=== PATIENT | female | born 1995 | race Caucasian/White ===

== ENCOUNTER 2017-12-17 21:11 | Emergency (ER) | payer MEDICAID, SELFPAY ==
[2017-12-17 21:12] VITALS: BP 160/107; PULSE 108; RESP 20; TEMP 37.1; O2SAT 99; BMI 48.8
[2017-12-17 21:57] LABS: Bacteria 0 SEEN /hpf (None Seen); Mucous, Urine 0 SEEN /hpf (<or=2+); Red Blood Cells-Urine 0 SEEN /hpf (0-5)
[2017-12-17 21:59] LABS: Color, Urine Straw (Yellow); Glucose, Dipstick Normal (Normal); Ketone-Dipstick Negative (Negative); Leukocyte Esterase-Dipstick Negative /ul (Negative); Nitrite-Dipstick Negative (Negative); Occult Blood-Urine 25 /ul (Negative); Protein-Dipstick Negative (Negative); Urine Bilirubin Dipstick Negative (Negative); Urine Clarity Clear (Clear); Urine Urobilinogen Normal (Normal)
[2017-12-17 22:05] LABS: Internal QC Validated? YES +Cl - CLEAR BKGD; Pregnancy, Urine Negative Negative
[2017-12-17 22:10] LABS: Squamous Epithelial Cells - UA 0-5 SEEN /hpf (5-10)
[2017-12-17 22:13] LABS: White Blood Cells 0 SEEN /hpf (0-5)
[2017-12-17 22:43] LABS: Absolute Lymphocyte Count 3.43 X10^3/ul (0.83-4.51); Absolute Neutrophil Count 8.3 X10^3/uL (2.0-7.7); Basophil# 0.03 X10^3/uL; Basophil% 0.2 % (0-1); Eosinophil# 0.28 X10^3/uL; Eosinophils% 2.1 % (0-5); Hematocrit 40.5 % (37-47); Hemoglobin 12.9 g/dl (12.0-15.0); Lymphocyte # 3.43 X10^3/ul (4.0); Lymphocyte % 26.1 % (19-41); Mean Corp Hgb Conc 31.9 g/gl (32-36); Mean Corpuscular Hgb 27.5 pg (27.0-32.0); Mean Corpuscular Volume 86.4 fL (81-99); Mean Platelet Vol. 9.5 fl (6.2-12.0); Monocyte# 1.05 X10^3/uL; Neutrophil % 63.4 % (47-70); POSITIVE COUNT NO; POSITIVE DIFFERENTIAL NO; POSITIVE MORPHOLOGY NO; Platelet Count 351 K/mm3 (150-450); RBC Distribution Width CV 14.3 % (11.6-14.6); RBC Distribution Width SD 44.2 fl (35.1-43.9); Red Blood Count 4.69 M/mm3 (4.2-5.4); White Blood Count 13.1 K/mm3 (4.4-11.0)
[2017-12-17 23:16] LABS: Anion Gap 8 (5-15); BUN 11 mg/dL (7-18); BUN/Creat Ratio 14.9 RATIO (10-20); Calcium,Total 8.8 mg/dL (8.5-10.1); Chloride 106 mmol/L (98-107); Creatinine, Serum 0.74 mg/dL (0.55-1.02); EST Glomerular Filtration Rate 102 mL/min (>60); Est Glom Filt Rate - Afr Amer 124 mL/min (>60); Estimated Creatinine Clearance 96.97 ml/min; Glucose 95 mg/dL (74-106); Sodium Level 142 mmol/L (136-145)
[2017-12-17] MEDS: 0.9% Normal Saline 1,000 ML 1000 ML IV (23:26)
--- NOTE | 2017-12-17 23:33 | ED.VISSUMM ---
- ER Visit Summary Date of Service: 12/17/17 Chief Complaint: Feel weird History of Present Illness: The patient is a 22 F who states she woke up this morning feeling weird. She felt fine when she went to bed last night. She describes decreased energy and mild nausea. She states her limbs feel heavy to move them. Symptoms seem to worsen throughout the day. She did eat today did not notice any change in her symptoms with food. She has noted urinary urgency recently but no dysuria. She is unsure of her last menstrual cycle stating she does not have periods secondary to PCOS. Physical Examination: Vital signs reveal blood pressure 160/107, temperature 98.8, heart rate 108, respiratory rate 20, pulse ox 99% on room air. Patient sitting upright in bed no acute distress. She is nontoxic appearing. Head and neck examination reveals mildly dry mucous membranes. Heart is regular rate and rhythm. Lung sounds are clear. Abdomen is soft and nontender. Active bowel sounds are noted throughout. Extremity examination reveals strong distal pulses throughout. She has no significant leg edema. She has normal strength and sensation on testing. Test Results: CBC was a white count of 13.1 with a normal differential. On review of prior records patient has always had a mild leukocytosis on prior blood draws. Chemistry studies are unremarkable. Urinalysis is unremarkable. test is negative. Emergency Department Course and Treatment: She is given a liter of IV fluids. On repeat evaluation she is resting comfortably. Blood pressure is 104/55, heart rate 93, pulse ox 98% on room air. Patient will continue to monitor symptoms over the next several days. Treatment Plan: [] Disposition: Discharge Impression: Generalized weakness, uncertain etiology This note was generated with [employer] dictation software. It may contain incorrect words, spelling, and punctuation that were not noted in review of the chart prior to signing ED Disposition - Plan for ED Patient: Disposition: Home or Assisted Living Chief Complaint: Weakness Instructions: ED Weakness [facility] Referrals: Sarah Victoria NP-C [Primary Care Provider] -
--- NOTE | 2017-12-18 00:39 | ED.DEP ---
ED Disposition - Plan for ED Patient: Disposition: Home or Assisted Living Chief Complaint: Weakness Instructions: ED Weakness [facility] Referrals: Sarah Victoria NP-C [Primary Care Provider] -
[2017-12-18 00:43] VITALS: BP 109/55; PULSE 93; RESP 16; O2SAT 98
[2017-12-18 00:44] VITALS: BP 119/58; PULSE 89; RESP 16; O2SAT 97
== END 2017-12-18 00:56 | disposition home or self-care (01) ==
PROVIDERS: Emergency Provider Emergency Medicine; Family Provider Nurse Practitioner; PCP Nurse Practitioner
DX: R53.1 Weakness (principal); R11.0 Nausea; R39.15 Urgency of urination; R53.83 Other fatigue; E28.2 Polycystic ovarian syndrome; Z90.5 Acquired absence of kidney
CPT/HCPCS: 80048; 81001; 81025; 85025; 96360; 99283; J7030; A4216

== ENCOUNTER 2018-02-10 17:02 | Emergency (ER) | payer MEDICAID, SELFPAY ==
[2018-02-10 17:03] VITALS: BP 162/106; PULSE 95; RESP 16; TEMP 36.6; O2SAT 98; BMI 35.4
--- NOTE | 2018-02-10 17:32 | ED.VISSUMM ---
- ER Visit Summary Date of Service: 02/10/18 Chief Complaint: [] Dental pain History of Present Illness: The patient is a 22 F [] complaining of right upper wisdom tooth pain after it reportedly broke 2 days ago. She reports having a mild pain which was tolerable however then she felt a chunk came off and she has significant discomfort. She reports she has a appointment with a dentist tomorrow. Physical Examination: [] HEENT reveals right upper wisdom tooth posterior dental fracture. No significant gingival swelling or signs of infection. Moist mucous membranes. Remainder of exam is unremarkable. Test Results: [] None. Emergency Department Course and Treatment: [] Patient given oxycodone orally for analgesia. She reports she has a ride home. She was given a few Ultram tablets to last until tomorrow for her visit with a dentist. She is amenable with this plan and close follow-up. Treatment Plan: [] Oral analgesic medication with close dental follow-up. Disposition: [] Discharge, stable. Impression: [] Dental fracture Odontalgia This note was generated with [employer] dictation software. It may contain incorrect words, spelling, and punctuation that were not noted in review of the chart prior to signing ED Disposition - Plan for ED Patient: Chief Complaint: Dental Referrals: Sarah Victoria NP-C [Primary Care Provider] -
--- NOTE | 2018-02-10 17:35 | ED.DEP ---
ED Disposition - Plan for ED Patient: Disposition: Home or Assisted Living Chief Complaint: Dental Instructions: ED Fx Tooth Prescriptions: traMADol [Ultram (G)] 50 mg PO Q6H PRN PRN #8 tab PRN Reason: Pain Referrals: Sarah Victoria NP-C [NON-STAFF] -
[2018-02-10] MEDS: oxyCODONE 5 MG Tablet 10 MG PO (17:52)
== END 2018-02-10 17:57 | disposition home or self-care (01) ==
PROVIDERS: Emergency Provider Emergency Medicine
DX: S02.5XXA Fracture of tooth (traumatic), initial encounter for closed fracture (principal); K08.89 Other specified disorders of teeth and supporting structures; X58.XXXA Exposure to other specified factors, initial encounter; Y93.9 Activity, unspecified; Y92.9 Unspecified place or not applicable
CPT/HCPCS: 99283

== ENCOUNTER 2018-12-17 05:00 | Inpatient (IN) | payer MEDICAID, SELFPAY ==
--- NOTE | 2018-12-13 13:42 | PCM.HP.BLA ---
History and Physical Date of Admission: 12/17/18 Pre-Op History and Physical ? HPI: The patient is a 23 year old female presenting for pre-operative visit. She is scheduled for?, for history of previous and suspected LGA fetus on December 17, 2018. ??Procedure discussed along with risks, benefits and complications. ?Other alternatives discussed for management. Consent form signed??Yes.? PAST?MEDICAL?HISTORY PAST MEDICAL HISTORY Diagnosis Date ? Anemia ? ? BENIGN NEOPLASM SKIN NOS 11/08/2006 ? Chlamydia infection complicating 01/15/2014 ? Congenital absence of right kidney ? ? Congenital absence of right kidney ? ? FRACTURE 2006 ? ANKLE ? Irregular menses ? ? PMH - PAST MEDICAL HISTORY OF 2005 ? left ankle fracture ? Pyelonephritis 04/2017 ? seasonal allergies ? ? ? PAST?SURGICAL?HISTORY PAST SURGICAL HISTORY Procedure Laterality Date ? OTHER ? apr 2011 ? mole removal x 2 ? PAST SURGICAL HISTORY OF ? ? ? wisdom teeth removal ? REMOVE TONSILS/ADENOIDS,<12 Y/O ? CURRENT?MEDICATIONS ? Current Outpatient Medications: ferrous sulfate 325 mg (65 mg iron) tablet Take 1 tablet by mouth every other day. Take one tab on Mondays, Wednesdays and Fridays. Disp: Rfl: nitrofurantoin monohydrate and macrocrystal (MACROBID) 100 mg capsule Take 1 capsule by mouth once daily. For the remainder of the Disp: 30 capsule Rfl: 3 Nrsbkjhr-Wj-Dus-Fe-FA ( VITAMIN) tab Take 1 tablet by mouth. Disp: Rfl: ? No current facility-administered medications for this visit.? ? ALLERGIES:?Patient has no known allergies. ? PERSONAL HISTORY:? 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 control/protection: Condom ??Other Topics ?Concerns: ? Service: Not Asked ?Blood Transfusions: Not Asked ?Caffeine Concern: Yes ?soda ?Occupational Exposure: Not Asked ?Hobby Hazards: Not Asked ?Sleep Concern: Not Asked ?Stress Concern: Not Asked ?Weight Concern: Not Asked ?Special Diet: Not Asked ?Back Care: Not Asked ?Exercise: Not Asked ?Bike Helmet: Not Asked ?Seat Belt: Not Asked ?Self-Exams: Not Asked ??Social History Narrative ?Not on file ? FAMILY HISTORY:? FAMILY?HISTORY FAMILY HISTORY Problem Relation Age of Onset ? Heart Mother ? ? Cancer Father ?Bone cancer ? No Known Problems Brother ? ? Colon Cancer Maternal Grandmother ? ? Hypertension Maternal Grandmother ? ? Hypertension Maternal Grandfather ? ? Diabetes Paternal Grandmother ? ? No Known Problems Paternal Grandfather ? ? No Known Problems Son ? ? REVIEW OF SYMPTOMS: GENERAL: denies fevers or chills ENDOCRINOLOGY: has not been on steroids Cardiology : denies palpitations or chest pain Respiratory: denies SOB or cough Hematology: denies history of prolonged bleeding or easy bruising or VTE Allergy: Denies history of personal or family history of allergy to anesthesia ? ? PHYSICAL EXAMINATION: ? VITALS:?Last menstrual period 01/06/2018. ? GENERAL:??The patient is well nourished, well hydrated in no acute distress. ?, The patient is oriented to time, place, and person. NECK:?Supple. No lynphadenopathy, normal thyroid, no thyromegaly. LUNGS:?Clear to auscultation bilaterally. no wheezes, rhonchi or rales HEART:?Regular rate and rhythm, Normal heart sounds and No murmurs or gallops Extremities: 1+ edema, no clubbing or cyanosis Abdomen: Gravid, nontender, large for gestational age, no skin lesions. IMPRESSION: 39 week on scheduled date, history of previous , LGA fetus by ultrasound, polyhydramnios, 2 vessel umbilical cord ? PLAN:???The risks/benefits/alternatives and personal involved for the planned repeat were reviewed with the patient. Her questions were answered to her satisfaction and she desires to proceed. ?Consent was signed. ?I reviewed with her postop instructions and expectations. ? ? I have reviewed and updated past medical and surgical history, medications and allergies? Rissa Amaya M.D.
[2018-12-17] VITALS (20 sets, daily range): BP systolic 106–131; BP diastolic 45–72; PULSE 97–126; RESP 16–20; TEMP 36.2–37.6; O2SAT 95–99; BMI 46.5
[2018-12-17] MEDS: Lactated Ringers 1,000 ML 999 ML IV (05:15)
[2018-12-17 05:34] LABS: Absolute Lymphocyte Count 3.51 X10^3/ul (0.83-4.51); Absolute Neutrophil Count 11.3 X10^3/uL (2.0-7.7); Basophil# 0.04 X10^3/uL; Basophil% 0.2 % (0-1); Eosinophil# 0.34 X10^3/uL; Eosinophils% 2.1 % (0-5); Hematocrit 33.6 % (37-47); Hemoglobin 10.9 g/dl (12.0-15.0); Lymphocyte # 3.51 X10^3/ul (4.0); Lymphocyte % 21.4 % (19-41); Mean Corp Hgb Conc 32.4 g/gl (32-36); Mean Corpuscular Hgb 27.3 pg (27.0-32.0); Mean Platelet Vol. 9.3 fl (6.2-12.0); Monocyte# 1.21 X10^3/uL; Monocyte% 7.4 % (0-10); Neutrophil # 11.27 X10^3/uL (2.7-7.7); Neutrophil % 68.5 % (47-70); Platelet Count 249 K/mm3 (150-450); RBC Distribution Width CV 15.8 % (11.6-14.6); RBC Distribution Width SD 48.3 fl (35.1-43.9); White Blood Count 16.4 K/mm3 (4.4-11.0)
[2018-12-17 05:35] LABS: Differential Indicated SCAN CRITERIA MET; POSITIVE COUNT NO; POSITIVE DIFFERENTIAL NO; POSITIVE MORPHOLOGY YES
[2018-12-17] MEDS: Lactated Ringers 1,000 ML 150 ML IV (06:08)
[2018-12-17] MEDS: Sodium Citrate/Citric Acid 30 ML UDC PO (07:07)
--- NOTE | 2018-12-17 07:11 | NURSING ---
handoff report given to Elisha BLOOD and Jono
[2018-12-17] MEDS: Oxytocin 30 units/NS 500 ml 30 UNITS/500 ML IV.SOLN 167 UNITS IV (07:49)
--- NOTE | 2018-12-17 08:15 | PCM.OPRPT ---
Report of Operation Date of Procedure: 12/17/18 Pre-Operative Diagnosis: 39 WEEKS, PREVIOUS C/S, POLYHYDRAMNIOIS Post-Operative Diagnosis: SAME Surgery/Procedure Performed:: REPEAT LTCS Description of Surgical Findings:: Normal uterus tubes and ovaries. Large amount of clear amniotic fluid. Normal vigorous female radiology orderly: Katlin Vallecillo Type of Anesthesia:: Spinal Special Medications: none Specimen's removed: n/a Drains: moncada Estimated Blood Loss (mL): 900cc Fluids Replaced: 1900 cc Description of Procedure: The patient was taken to the operating room. She was prepped and draped in the dorsal supine position with a leftward tilt. A Pfannenstiel skin incision was made approximately 2 cm above the symphysis pubis and carried through to underlying layer fascia with the scalpel. The fascia was incised incised in the midline and extended laterally with the Bush scissors. The fascia was dissected off the rectus muscles with blunt and sharp dissection. The rectus muscles were in the midline and the peritoneum was entered bluntly. The peritoneal incision was stretched and the bladder blade was placed. The uterine incision was made in a low transverse fashion with the scalpel and extended superiorly and inferiorly with blunt dissection. The amniotic membranes were ruptured bluntly and clear amniotic fluid returned. The infant's head was brought to the incision in the flexed position, it would not engage very easily. The head was held down against the incision and the Kiwi vacuum was placed on the flexion point and suction create a 550 mmHg. With one gentle pull and fundal pressure in the standard fashion the head delivered easily with no pop offs. The vacuum was removed. The remainder of the was delivered in less than 15 seconds with minimal traction and delivered without difficulty. The mouth and nares were bulb suctioned. The cord was clamped and cut as the infant was stimulated. Cord clamping was delayed. The was handed off to the waiting nursing staff. The placenta was delivered with fundal massage and gentle traction in the standard fashion. The uterus was exteriorized and cleared of all clots and debris. The cervix was dilated with a ring forcep. The uterine incision was closed with #1 Vicryl in a running locked fashion. A second layer of the same suture was used in an imbricating fashion. The incision was examined and was found to be hemostatic. The uterus was placed back into the peritoneal cavity and hemostasis was again confirmed. The rectus muscles were examined and any bleeding was Bovie cauterized. The parietal peritoneum and rectus muscles were closed en bloc with an 0 Vicryl running suture. The surgical teams outer gloves were then changed. The rectus fascia was examined and any bleeding was Bovie cauterized and the rectus fascia was closed with looped #1 PDS suture in a running standard fashion. The subcutaneous tissue was examining and any bleeding was Bovie cauterized. The subcutaneous tissue was reapproximated with 3-0 Vicryl suture. The skin was closed in a subcuticular fashion by the LOG YARD DERRICK OPERATOR with me present in the labor and delivery suite. I performed the remainder of the procedure with assistance. Abisai was placed over the uterine incision. It was also placed in the subcutaneous tissue. All sponge, lap, and needle counts were correct. The patient was taken to her room for recovery in a stable condition. Grafts/Implants Used: none - Complications none - Admit VTE Documentation VTE Present on Admission: No VTE Mechan Device Prophylaxis: SCD's VTE Pharm Prophylaxis ordered?: Yes Delivery Classification: Scheduled Final ADARSH: 12/24/18 Final ADARSH Source: US <20 weeks Gestational age: 39 Weeks and 0 Days Indications for : Repeat Elective Amniotic Membrane Rupture Type: Artificial Amniotic Fluid Description: Clear Placenta [facility]position[facility] Drain: Moncada to straight drain Cord Entanglement: None Cord Vessel Description: 3 Vessels Infant Gender: Female (1 minute): 8 (5 minute): 9 Delayed cord clamping: Yes Pre-op Antibiotic Given: - - ancerf 3 gm
--- NOTE | 2018-12-17 08:22 | OP.PCM_ITS ---
Report of Operation Date of Procedure: 12/17/18 Pre-Operative Diagnosis: 39 WEEKS, PREVIOUS C/S, POLYHYDRAMNIOIS Post-Operative Diagnosis: SAME Surgery/Procedure Performed:: REPEAT LTCS Description of Surgical Findings:: Normal uterus tubes and ovaries. Large amount of clear amniotic fluid. Normal vigorous female yard brakeman: Katlin Vallecillo Type of Anesthesia:: Spinal Special Medications: none Specimen's removed: n/a Drains: moncada Estimated Blood Loss (mL): 900cc Fluids Replaced: 1900 cc Description of Procedure: The patient was taken to the operating room. She was prepped and draped in the dorsal supine position with a leftward tilt. A Pfannenstiel skin incision was made approximately 2 cm above the symphysis pubis and carried through to underlying layer fascia with the scalpel. The fascia was incised incised in the midline and extended laterally with the Bush scissors. The fascia was dissected off the rectus muscles with blunt and sharp dissection. The rectus muscles were in the midline and the peritoneum was entered bluntly. The peritoneal incision was stretched and the bladder blade was placed. The uterine incision was made in a low transverse fashion with the scalpel and extended superiorly and inferiorly with blunt dissection. The amniotic membranes were ruptured bluntly and clear amniotic fluid returned. The infant's head was brought to the incision in the flexed position, it would not engage very easily. The head was held down against the incision and the Kiwi vacuum was placed on the flexion point and suction create a 550 mmHg. With one gentle pull and fundal pressure in the standard fashion the head delivered easily with no pop offs. The vacuum was removed. The remainder of the was delivered in less than 15 seconds with minimal traction and delivered witho ut difficulty. The mouth and nares were bulb suctioned. The cord was clamped and cut as the was stimulated. Cord clamping was delayed. The was handed off to the waiting nursing staff. The placenta was delivered with fundal massage and gentle traction in the standard fashion. The uterus was exteriorized and cleared of all clots and debris. The cervix was dilated with a ring forcep. The uterine incision was closed with #1 Vicryl in a running locked fashion. A second layer of the same suture was used in an imbricating fashion. The incision was examined and was found to be hemostatic. The uterus was placed back into the peritoneal cavity and hemostasis was again confirmed. The rectus muscles were examined and any bleeding was Bovie cauterized. The parietal peritoneum and rectus muscles were closed en bloc with an 0 Vicryl running suture. The surgical teams outer gloves were then changed. The rectus fascia was examined and any bleeding was Bovie cauterized and the rectus fascia was closed with looped #1 PDS suture in a running standard fashion. The subcutaneous tissue was examining and any bleeding was Bovie cauterized. The subcutaneous tissue was reapproximated with 3-0 Vicryl suture. The skin was closed in a subcuticular fashion by the LIGHT ADJUSTER with me present in the labor and delivery suite. I performed the remainder of the procedure with assistance. Abisai was placed over the uterine incision. It was also placed in the subcutaneous tissue. All sponge, lap, and needle counts were correct. The patient was taken to her room for recovery in a stable condition. Grafts/Implants Used: none - Complications none - Admit VTE Documentation VTE Present on Admission: No VTE Mechan Device Prophylaxis: SCD's VTE Pharm Prophylaxis ordered?: Yes Delivery Classification: Scheduled Final ADARSH: 12/24/18 Final ADARSH Source: US <20 weeks Gestational age: 39 Weeks and 0 Days Indications for : Repeat Elective Amniotic Membrane Rupture Type: Artificial Amniotic Fluid Description: Clear Placenta [facility]position: [facility] Drain: Moncada to straight drain Cord Entanglement: None Cord Vessel Description: 3 Vessels Infant Gender: Female (1 minute): 8 (5 minute): 9 Delayed cord clamping: Yes Pre-op Antibiotic Given: - - ancerf 3 gm
[2018-12-17] MEDS: Lactated Ringers 1,000 ML 100 ML IV ×2 (09:39→18:42)
[2018-12-17] MEDS: Ketorolac 30 MG/ML Syringe IV ×2 (13:57→20:16)
[2018-12-17] MEDS: Senna/Docusate Sodium 1 Tablet PO ×2 (14:07→22:31)
[2018-12-17] MEDS: 0.9% Saline Lock 10 ML Syringe IV (20:15)
[2018-12-17] MEDS: DiphenhydrAMINE 25 MG Capsule PO (21:19)
[2018-12-18] VITALS (8 sets, daily range): BP systolic 107–127; BP diastolic 49–75; PULSE 95–112; RESP 16–18; TEMP 36.4–36.9; O2SAT 94–97
[2018-12-18] MEDS: Acetaminophen 500 MG Tablet 1000 MG PO ×2 (00:32→12:15)
[2018-12-18] MEDS: Ketorolac 30 MG/ML Syringe IV ×4 (01:14→19:50)
[2018-12-18] MEDS: Enoxaparin 80 MG/0.8 ML Syringe 70 MG SC (06:04)
[2018-12-18 06:43] LABS: Hematocrit 31.5 % (37-47); Hemoglobin 10.1 g/dl (12.0-15.0); Mean Corp Hgb Conc 32.1 g/gl (32-36); Mean Corpuscular Hgb 27.1 pg (27.0-32.0); Mean Corpuscular Volume 84.5 fL (81-99); Mean Platelet Vol. 9.5 fl (6.2-12.0); Platelet Count 217 K/mm3 (150-450); RBC Distribution Width SD 49.1 fl (35.1-43.9); Red Blood Count 3.73 M/mm3 (4.2-5.4)
[2018-12-18 06:45] LABS: Scan Indicated on CBC? Y/N NO
[2018-12-18] MEDS: 0.9% Saline Lock 10 ML Syringe IV ×2 (08:27→19:50)
--- NOTE | 2018-12-18 12:41 | PCM.PN.OB ---
Subjective: Doing well per patient and nursing staff. Ambulating without difficulty. Roman out. Voiding and had bowel movement. Toradol for pain and effective. Bottle feeding. Taking PO without difficulty. Denies CENTENO, visual changes, chest pain, shortness of breath, increased bleeding or leg pain. Planning D/C home tomorrow. - Physical Exam General: Alert, Oriented x3, Cooperative HEENT: Atraumatic, Normocephalic Neck: Trachea Midline Lungs: Clear to auscultation, Normal air movement, No rhonchi, No wheeze Cardiovascular: Regular rate, Regular Rhythm, No murmurs Abdomen: Bowel Sounds Present, Soft, - - Appropriately tender. Fundus firm 3 below U. Dressing dry and intact, no drainage. Extremities: No edema Neurological: Deep Tendon Reflexes 2+/4 and Symmetrical Psych/Mental Status: Normal Affect, Appropriate Vital Signs Temp Pulse Resp BP Pulse Ox 98.5 F 110 H 18 120/67 94 12/18/18 08:15 12/18/18 08:15 12/18/18 08:15 12/18/18 08:15 12/18/18 05:12 Oxygen Delivery Method Room Air Weight: 263 lb Body Mass Index (BMI) 46.5 Intake and Output for Last 24 Hours 12/16/18 12/17/18 12/18/18 23:59 23:59 23:59 Intake Total 4903 / 4903 988 / 988 Output Total 1150 / 1150 2800 / 2800 Balance 3753 / 3753 -1812 / -1812 Laboratory Tests Past 24 Hrs 12/18/18 06:10 WBC 17.0 H RBC 3.73 L Hgb 10.1 L Hct 31.5 L MCV 84.5 MCH 27.1 MCHC 32.1 RDW 16.0 H RDW Differential 49.1 H Plt Count 217 MPV 9.5 Medical Necessity - Tobacco Use Smoking Status: Never smoker Assessment/Plan A:POD #1 Repeat LTCS P: 1) Routine post op care 2) Labs and vitals normal 3) D/C home tomorrow.
--- NOTE | 2018-12-18 16:46 | CASEMGMT ---
Social Work Labor and Delivery Unit Social work consult received and noted. Chart has been reviewed. Plan: See patient/mother of baby for assessment on 12-19-2018. -DELTA Briceno, FILM TESTS CHECKER
[2018-12-19] MEDS: Ketorolac 30 MG/ML Syringe IV ×2 (01:35→08:06)
[2018-12-19] MEDS: 0.9% Saline Lock 10 ML Syringe IV ×2 (01:36→08:07)
[2018-12-19 01:45] VITALS: BP 110/77; PULSE 98; RESP 18; TEMP 36.3
[2018-12-19] MEDS: Enoxaparin 80 MG/0.8 ML Syringe 70 MG SC (05:36)
[2018-12-19 08:10] VITALS: BP 125/80; PULSE 107; RESP 20; TEMP 37.1; O2SAT 98
--- NOTE | 2018-12-19 08:36 | DCINST_ITS ---
Discharge Diet: No Restrictions Discharge Activity: May Not Drive - for 2 weeks or while taking narcotic pain meds., May Shower, May Take a Tub Bath - in 7 days. May resume sexual activity in: 4-6 weeks Lifting Restrictions: 20 pounds Additional Activity Instructions:: Nothing in the vagina for 4-6 weeks. You may return to work/school in 6 weeks. Call your doctor if your incision/area has: Continuous Slow Oozing, Sudden Increased Bleeding, Increased Pain/ Swelling, Increased Redness, Foul Smelling Discharge Call your doctor if you observe: Fever of 101 or Higher Suture Line Care: Avoid Pulling/Pushing, Avoid Pinching/Bending Additional Instructions: If you experience any of the following, contact your healthcare provider. * Bleeding that soaks a pad every hour for 2 hours * Fever 100.4 or higher * Unrelieved incision or abdominal pain * Swelling, redness, discharge or bleeding from your incision or episiotomy site * Your incision begins to separate * Problems urinating (including inability to urinate or burning while urinating). * Visual changes * Severe headache * Flu-like symptoms * Pain or redness in one of both of your breasts * Pain, warmth, tenderness or swelling in your legs, especially the calf area * Frequent nausea and vomiting * Symptoms of depression or anxiety If you experience any of the following, call 911 or go to the nearest Emergency Room. * Chest pain * Problems breathing * Seizure activity * Partial or complete paralysis of a body part, slurred speech, weakness or drooping of the face, or a sudden inability to walk or hold your balance Allergies/Adverse Reactions: Allergies No Known Allergies Allergy (Verified 12/17/18 05:03) Medications to take at Discharge Ferrous Sulfate [Iron] 325 mg PO DAILY 12/17/18 Nitrofurantoin Monohyd/M-Cryst [Macrobid 100 mg Capsule] 100 mg PO DAILY 12/17/18 Tablet 1 tab PO DAILY 12/17/18 Follow-Up: Call to make an appointment with your doctor for an incision check in 1-2 weeks. You will also need a 6 week post- follow up appointment. Test results from this visit will be discussed in further detail at your follow- up appointment, if applicable. Please Follow Up With: Rissa Amaya MD - Incision Check visit already scheduled When: 12/27/18 Primary Care Physician: Care Physician,No Primary [Primary Care Provider] - Proposed Discharge Date: 12/19/18
--- NOTE | 2018-12-19 08:39 | PCM.PN.OB ---
Subjective: Patient sitting up in bed denying any issues or complaints at this time. Patient reports no issues with urination or ambulation. Patient is bottlefeeding infant - tolerating formula well. Patient reports incisional pain is well controlled with NSAID pain medication. Patient desires discharge to home today. Objective: Nipples without cracks, blisters. Breasts soft. Abdomen NT x 4 quadrants, + flatus, FF midline 2FB below umbilicus Incisional dressing dry and intact, no exudate noted. 2x5cm erythematous plque rash on abdomen above dressing on right side. Most c/w contact dermatitis or heat rash. Blanches when pressed. +2/4 reflexes in LE, no edema in LE, negative calf tenderness to palpation scant rubra lochia - Physical Exam General: Alert, Oriented x3, Cooperative HEENT: Atraumatic, Normocephalic Lungs: Normal air movement Cardiovascular: Regular rate, Regular Rhythm Abdomen: Soft, Non Tender Extremities: No edema, Capillary Refill Less than 3 Seconds Skin: No breakdown, Rash Present - above incisional dressing on right side of abdomen - raised red plaque rash Musculoskeletal: No Tenderness to Palpation of Joints or Extremities Neurological: Cranial nerves II-XII grossly intact Psych/Mental Status: Normal Affect, Appropriate Vital Signs Temp Pulse Resp BP Pulse Ox 98.8 F 107 H 20 H 125/80 H 98 12/19/18 08:10 12/19/18 08:10 12/19/18 08:10 12/19/18 08:10 12/19/18 08:10 Oxygen Delivery Method Room Air Weight: 263 lb Body Mass Index (BMI) 46.5 Intake and Output for Last 24 Hours 12/17/18 12/18/18 12/19/18 23:59 23:59 23:59 Intake Total 4903 / 4903 988 / 988 Output Total 1150 / 1150 3600 / 3600 Balance 3753 / 3753 -2612 / -2612 Medical Necessity - Tobacco Use Smoking Status: Never smoker Assessment/Plan 23 y/o s/p repeat LTCS, POD #2, Normal PP Course, Contact Dermatitis Rash P: 1) Discharge to home pending discharge 2) Rx Hydrocortison cream TID PRN application to rash for symptomatic relief 3) Discharge instructions and PP teaching reviewed 4) RTC for incision check in 1-2 weeks, PP visit due 6 weeks PP Sabi Finley APRN-RUCHIM
--- NOTE | 2018-12-19 09:12 | CASEMGMT ---
Addendum entered and electronically signed by Lina Palomares 12/19/18 12:58: Reviewed and approve TAPPER BALANCE WHEEL SCREW HOLE student music intern documentation below. -DELTA Briceno, MICA BUILDER Original Note: Addendum entered and electronically signed by Cathleen Resendiz 12/19/18 09:41: Additional information: TAWNYA's PNC began at 8 weeks. Baby Mary was born 12/17/18 at 8lbs 40z with scores of 9 and 9. -Cathleen Resendiz, TAPPER BALANCE WHEEL SCREW HOLE Student Qc Tech Original Note: Social Work Labor and Delivery Date of Referral:12/17/18 Time of referral: 1832 Referred by:Dr. Amaya Date of Intervention: 12/19/18 Time of Intervention: 8:50am Reason for referral: limited support, no FOB involved, resources History obtained from: medical record, Mother of baby (TAWNYA) Gissell Bender Household composition: MOB lives with mother and son Chi(4) and baby Mary Patient's parent/guardian status: MOB is no longer involved with FOB as they were previously off and on. MOB reports to be doing well. TAWNYA has the same FOB for both children. No domestic violence history for MOB with FOB or other individuals. Medical history: MOB does not have any pertinent medical history. 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 MOB reported to be able to read, write, and comprehend. 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 Childcare/givers: MOB will be primary caregiver. MOB reports that her mother and grandmother will be supplemental caregivers. Transportation: MOB reports to drive and have no issues with transportation. Programs/agencies involved: TAWNYA is connected with [facility] for [place], [place], and accepted a [facility] referral. Children services/legal issues: MOB denies any history with children services and any legal issues. Behavioral Health Issues: Mental Health History: TAWNYA has not been diagnosed with any mental health issues. MOB denied any previous or current thoughts of suicide. MOB denied history of PPD with first child. Substance use history: MOB denies any substance usage. Family History: MOB did not identify any history of concern. Drug Screens: MOB had a negative drug screen at [facility] visit on 05/17/18 Family/social stressors: MOB mentioned planning to move soon as a potential stressor. Support systems: MOB reported her mother to be support. MOB's grandmother is also support. PPD/ Shaken Baby/ Safe Sleeping: utility worker film processing music intern reviewed PPD/ Safe sleeping/ Shaken baby with MOB and MOB was understanding and educated. ASSESSMENT: MOB was in room alone with baby Mary. MOB was calm and attentive during conversation. MOB answered all questions appropriately. MOB reported FOB is no longer involved and they no longer talk. MOB reported to be doing well and ready to return home. TAWNYA's son Chi is excited to be a big brother. MOB reports no issues or concerns with returning home. TAWNYA has plans to later move out of her mother's house and will be interested in applying for food card. MOB was provided resources packet for [facility], PPD/WIC/HMG information, and Community action brochure. PLAN: MOB to return home with baby. utility worker film processing music intern to submit [facility] referral. Social work to provide food card application to MOB. -Cathleen Resendiz, TAPPER BALANCE WHEEL SCREW HOLE Student Qc Tech.
--- NOTE | 2018-12-19 09:43 | CASEMGMT ---
Addendum entered and electronically signed by Lina Palomares 12/19/18 12:59: Reviewed and approve FABRIC SEPARATOR OPERATOR student management intern documentation below. -DELTA Briceno, TAMALE MACHINE FEEDER Original Note: Social Work Labor and Delivery [facility] referral was submitted securely online at the [facility]'s website per MOB's verbal consent. Food assistance application provided to MOB. No other services requested or indicated at this time. -Cathleen Resendiz, FABRIC SEPARATOR OPERATOR Student Assistant Case Manager.
== END 2018-12-19 11:00 | disposition home or self-care (01) | DRG 540 ==
PROVIDERS: Admitting Provider Obstetrics & Gynecology; Referring Provider Obstetrics & Gynecology; Visit Provider Obstetrics & Gynecology
PROC: 10D00Z1 Extraction of Products of Conception, Low, Open Approach (ICD-10-PCS; CPT 59514; principal; 2018-12-17 07:15)
DX: O34.211 Maternal care for low transverse scar from previous cesarean delivery (principal); N85.8 Other specified noninflammatory disorders of uterus; Z3A.39 39 weeks gestation of pregnancy; Z37.0 Single live birth; Q60.0 Renal agenesis, unilateral; O40.3XX0 Polyhydramnios, third trimester, not applicable or unspecified; O36.63X0 Maternal care for excessive fetal growth, third trimester, not applicable or unspecified; O69.89X0 Labor and delivery complicated by other cord complications, not applicable or unspecified; L25.9 Unspecified contact dermatitis, unspecified cause; O99.02 Anemia complicating childbirth; D64.9 Anemia, unspecified
CPT/HCPCS: 85025; 85027; 86850; 86900; 99218; J7120; A4216; G0378; J2405

== ENCOUNTER 2019-02-27 05:39 | Day surgery (SDC) | payer OTHER, MEDICAID, SELFPAY ==
[2018-12-17 05:03] VITALS: BMI 46.5
--- NOTE | 2019-02-26 12:33 | PCM.HP.OB ---
- Problem List (1) Sterilization Status: Acute History Date of Admission: 02/27/19 Final ADARSH Source: US <20 weeks History of this : This is a 23 year-old who desires permanent sterilization. She is 100% certain she does not want children in the future. She understands sterilization is permanent and irreversible, and there is a risk of regret. She is currently not sexually active. She has no complaints and feels well. Medical History: Medical History (Last Updated 02/26/19 @ 12:36 by Yumiko Maria DO) Anemia D64.9 Ankle fracture S82.899A Congenital absence of one kidney Q60.0 History of chlamydia Z86.19 History of wisdom tooth extraction K08.409 Irregular menses N92.6 Pyelonephritis N12 Surgical History: Surgical History (Last Updated 02/26/19 @ 12:36 by Yumiko Maria DO) History of delivery Z98.891 History of removal of skin mole Z98.890, Z87.2 Hx of tonsillectomy Z90.89 Allergies No Known Allergies Allergy (Verified 02/20/19 12:03) Home Medications: Home Medications Ferrous Sulfate [Iron] 325 mg PO DAILY 12/17/18 Smoking Status: Never smoker History Past Pregnancies: Past Pregnancies Delivery Date Name GA/Weeks Outcome Route Weight Gender Labor Length Anesthesia Delivery Location Provider FOB Review of Systems Constitutional: Denies: Chills, Fever, Malaise Eyes: Denies: Blurred vision HEENT: Denies: Head Aches Cardiovascular: Denies: Chest Pain Respiratory: Denies: Cough, Shortness of Breath Gastrointestinal: Denies: Abdominal Pain, Constipation, Diarrhea, Nausea, Vomiting Genitourinary: Denies: Dysuria Gynecological: Denies: Vaginal discharge Skin: Denies: Lesions Neurological: Denies: Blurred vision, Headaches Psychiatric: Denies: Anxiety, Depression Physical Exam General: Alert, No apparent distress HEENT: Atraumatic Cardiovascular: Regular rate Lungs: Clear to auscultation Abdomen: Soft, Non Tender, Non-Distended Extremities:: No edema Neurological: Neuro grossly intact Assessment/Plan All Active Problems Sterilization (Acute) This is a 23 year-old who desires permanent sterilization. Laparoscopic salpingectomy was discussed with the patient in detail. Risks, benefits, and alternatives were reviewed and patient signed consent. She understands this is permanent and irreversible. Patient desires to proceed with surgery. To proceed with sterilization as planned.
[2019-02-27] VITALS (7 sets, daily range): BP systolic 95–128; BP diastolic 46–74; PULSE 66–93; RESP 15–18; TEMP 36.1–36.7; O2SAT 92–100; BMI 45.1
[2019-02-27 06:14] LABS: Internal QC Validated? YES +Cl - CLEAR BKGD
[2019-02-27 06:15] LABS: Pregnancy, Urine Negative Negative
[2019-02-27 06:38] LABS: Hematocrit 35.5 % (37-47); Hemoglobin 11.5 g/dl (12.0-15.0); Mean Corp Hgb Conc 32.4 g/gl (32-36); Mean Corpuscular Hgb 27.3 pg (27.0-32.0); Mean Corpuscular Volume 84.1 fL (81-99); Platelet Count 334 K/mm3 (150-450); RBC Distribution Width CV 15.2 % (11.6-14.6); Red Blood Count 4.22 M/mm3 (4.2-5.4); Scan Indicated on CBC? Y/N NO; White Blood Count 12.9 K/mm3 (4.4-11.0)
--- NOTE | 2019-02-27 07:24 | DCINST_ITS ---
You will use the following diet at home:: No restrictions, Regular Discharge Activity: May not drive while taking narcotic pain medications., May Shower Return to work on:: 03/03/19 May resume sexual activity in: 1 week Weight Bearing Status: Full weight bearing Lifting Restrictions: No reptitive heavy lifting > 30 pounds Call your doctor if your incision/area has: Sudden Increased Bleeding, Increased Pain/ Swelling, Increased Redness, Foul Smelling Discharge, Swelling at the incision site Call your doctor if you observe: Fever of 101 or Higher, Inability to urinate, Inability to have a bowel movement, Using more than one pad per hour, Shortness of breath, Dizziness, Chest pain, Increased palpitations (irregular heartbeat), Calf discomfort, Uncontrolled pain Suture Line Care: Avoid Pulling/Pushing Cleanse incision/area with: Soap & Water Allergies/Adverse Reactions: Allergies No Known Allergies Allergy (Verified 02/20/19 12:03) Medications to take at Discharge Ferrous Sulfate [Iron] 325 mg PO DAILY 12/17/18 Primary Care Physician: Care Physician,No Primary [Primary Care Provider] - Test Results: Test results from this visit will be discussed in further detail at your follow- up appointment, if applicable. Please Follow Up With: Yumiko Maria DO When: 1-2 weeks Proposed Discharge Date: 02/27/19
--- NOTE | 2019-02-27 07:30 | OP.PCM_ITS ---
Problem List (1) Sterilization Status: Acute Report of Operation Date of Procedure: 02/27/19 Pre-Operative Diagnosis: Desires permenent sterilization Post-Operative Diagnosis: As above Surgery/Procedure Performed:: Laparoscopic bilateral salpingectomy Description of Surgical Findings:: Normal appearing uterus. Minimal adhesions of the bladder to the anterior uterus. Left ovary with a physiologic appearing cyst about 1 cm in size. Right ovary normal. Left fallopian tube with small adhesions to the ovary. Right fallopian tube with a small paratubal cyst. Normal appearing liver edge. Type of Anesthesia:: General Specimen's removed: Bilateral fallopian tubes Drains: None Estimated Blood Loss (mL): 10 cc Fluids Replaced: 800 cc Description of Procedure: Patient was prepped and draped in usual sterile fashion in dorsal lithotomy p osition using yellow fin stirrups under general anesthesia. A weighted speculum was placed in the vagina and the cervix exposed. A single tooth tenaculum was placed on the anterior lip of the cervix, and a uterine manipulator was placed. Gloves were changed and attention was turned to the abdominal portion of the case. A 5 mm infraumbilical incision was made to accommodate a 5 mm port and the laparoscope. The 5 mm port was placed under direct visualization. Once confirmed intraperitoneal, CO2 insufflation was initiated. The abdomen and pelvis was inspected, and the above findings were noted. A left lateral 5 mm port was placed. A right lateral 5 mm port was placed. The left fallopian tube was elevated and followed out to the fimbriated end. The Ligasure device was used to cauterize and transect the left fallopian tube. The same was performed on the right. Bilateral fallopian tubes were sent to pathology for review. Hemostasis was noted. The abdomen was exsufflated. The ports were removed. All instruments were removed from the vagina. Instrument counts were correct. Patient was taken to the recovery room in stable condition. Grafts/Implants Used: None - Complications None - Admit VTE Documentation VTE Present on Admission: No VTE Mechan Device Prophylaxis: SCD's VTE Pharm Prophylaxis ordered?: No
--- NOTE | 2019-02-27 07:30 | FALS_PTH ---
PATIENT: JOSE SHAW LOC: [facility] [place] U#:[id number] AGE/SX: 23/F ROOM: RE02/27/[address]: Dr. Yumiko Maria DO : 1995 BED: DIS: 02/27/2019 SPEC #: [id number] RECD: 02/27/19 10:48 STATUS: REYNA TAMMY #: [id number] JOAN: 02/27/19 07:[address]: Yumiko Maria DEPT: SURGICAL PATHOLOGY RECD BY: [place] ENTERED: 02/27/19 13:32 SP TYPE: FALL TUBES OTHR DR: No Primary Care Phys Tissues: Fallopian tube Procedures: Surgery Specimen Level II HEADER OPERATION: Laparoscopic, salpingectomy PRE-OP DIAGNOSIS: Sterilization TISSUE SUBMITTED: Bilateral fallopian tubes MICROSCOPIC DIAGNOSIS Right and left fallopian tubes, bilateral salpingectomies: No pathologic change. AM:yvonne 02/28/19 MICROSCOPIC DESCRIPTION Slides are reviewed. GROSS DESCRIPTION Received is one container labeled with the patient's name and designated bilateral fallopian tubes. The specimen consists of two fallopian tubes with an average length of 6 cm and has a maximal diameter of 0.6 cm. Both fallopian tubes have normal fimbriated ends. The soft tissue adjacent to the fimbriated ends contain multiple cysts ranging in size from 0.7 to 1 cm. Sample Maker sections are submitted in two cassettes as follows: 1 - one fallopian tube, 2 - the other fallopian tube. / AM:yvonne 02/27/19 TC:4 CPT: 27838 x2
[2019-02-27] MEDS: Bupivacaine Mpf 0.5% 30 ML VIAL (08:30)
== END 2019-02-27 10:52 | disposition home or self-care (01) ==
LOC: SDC 05:40 → AC 06:20
PROVIDERS: Anesthesiology; Referring Provider Obstetrics & Gynecology; Visit Provider Obstetrics & Gynecology
PROC: (CPT 58661; principal; 2019-02-27 07:20)
DX: Z30.2 Encounter for sterilization (principal); D64.9 Anemia, unspecified; Z79.899 Other long term (current) drug therapy; N83.8 Other noninflammatory disorders of ovary, fallopian tube and broad ligament; N73.6 Female pelvic peritoneal adhesions (postinfective)
CPT/HCPCS: 58661; 36415; 81025; 85027; 86850; 86900; 88302; J7120; J2405

== ENCOUNTER 2020-12-17 20:06 | Emergency (ER) | payer MEDICAID, SELFPAY ==
[2019-02-27 06:17] VITALS: BMI 45.1
[2020-12-17 20:07] VITALS: BP 158/84; PULSE 146; RESP 18; TEMP 36.7; O2SAT 100; BMI 51.1
--- NOTE | 2020-12-17 20:25 | EKG12_ITS ---
Test Reason : DYSRHYTHMIA Blood Pressure : / mmHG Vent. Rate : 133 BPM Atrial Rate : 133 BPM P-R Int : 140 ms QRS Dur : 082 ms QT Int : 286 ms P-R-T Axes : 043 026 -20 degrees QTc Int : 425 ms Sinus tachycardia Otherwise normal ECG Confirmed by FELICIA PINEDA, DAX ([id number]), commercial production editor CHASE HASKINS ([id number]) on 12/20/2020 1:50:35 PM Referred By: JOHANNE Confirmed By:DAX DUARTE MD
[2020-12-17] MEDS: LORazepam 2 MG/ML Syringe 1 MG IV (20:35)
[2020-12-17] MEDS: Ondansetron 4 MG/2 ML Vial IV (20:35)
--- NOTE | 2020-12-17 20:38 | ED.VISSUMM ---
- ER Visit Summary Date of Service: 12/17/20 Chief Complaint: [Not feeling well after ingesting CBD Gummies] History of Present Illness: The patient is a 25 F [presents to the emergency department stating that she feels terrible and feels like she is going to . Patient states that she ingested 5 CBD Gummies that she had bought at a shop. She is never ingested 5 before but has used CBD Gummies in the past. Patient denies any other illicit drug use. She denies alcohol use. Patient states that she feels anxious and shaky. She feels somewhat short of breath. Patient is not suicidal and she was not attempting to harm her self. Patient has no medical history.] Physical Examination: [HEENT-PERRLA, EOMI. Cranial nerves II through XII grossly intact. TMs clear. Mucous membranes moist. No adenopathy. Cardiovascular-regular rate and rhythm without murmur or ectopy Lungs-clear to auscultation, chest wall stable without crepitus or subcu emphysema Abdomen-normoactive bowel sounds, soft, nontender, no rebound or rigidity, no peritoneal signs. Extremities-intact ?4, normal range of motion, normal pulses, atraumatic] Test Results: [EKG obtained on arrival showed a sinus tachycardia with a ventricular rate of 133 bpm with no acute ST segment changes. Toxicology screen was positive for THC.] Emergency Department Course and Treatment: [IV line established. Patient was given Ativan 1 mg IV and Zofran 4 mg IV. Patient was observed in the department for approximately 2 hours and she symptomatically felt much improved. Her friend states that she seems like she is doing much better and closer to her baseline at this point. Patient is asking to be discharged.] Treatment Plan: [Patient advised to discontinue THC.] Disposition: [Discharged home in stable condition] Impression: [Accidental overdose of THC] This note was generated with [employer] dictation software. It may contain incorrect words, spelling, and punctuation that were not noted in review of the chart prior to signing ED Disposition - Plan for ED Patient: Referrals: Care Physician,No Primary [Primary Care Provider] -
[2020-12-17 21:08] LABS: Amphetamine Urine VISTA NEGATIVE (<1000 ng/mL); Barbiturate Urine VISTA NEGATIVE (< 200 ng/mL); Benzodiazepine Urine VISTA NEGATIVE (< 200 ng/mL); Cocaine Urine VISTA NEGATIVE (< 300 ng/mL); Ecstacy Urine VISTA NEGATIVE (< 500 ng/mL); Methadone Urine VISTA NEGATIVE (< 300 ng/mL); PCP Urine VISTA NEGATIVE (< 25 ng/mL); THC Urine VISTA POSITIVE (< 50 ng/mL); Vista UDS pH Range 6
--- NOTE | 2020-12-17 22:11 | ED.DEP ---
ED Disposition - Plan for ED Patient: Instructions: ED Drug Abuse Referrals: Care Physician,No Primary [Primary Care Provider] - Christopher Bender MD [STAFF PHYSICIAN] - 3-5 Days
[2020-12-17 22:25] VITALS: BP 139/74; PULSE 118; RESP 18; O2SAT 99
== END 2020-12-17 22:26 | disposition home or self-care (01) ==
LOC: ED 20:44
PROVIDERS: Emergency Provider Emergency Medicine
DX: T40.7X1A Poisoning by cannabis (derivatives), accidental (unintentional), initial encounter (principal); R06.02 Shortness of breath; R00.0 Tachycardia, unspecified; Y92.9 Unspecified place or not applicable
CPT/HCPCS: 80307; 93005; 96374; 96375; 99284; A4216; J2405